=== PATIENT | male | born 1965 | race Caucasian/White ===

== ENCOUNTER 2016-11-21 10:00 | Day surgery (SDC) | payer OTHER ==
[~2016-11-21] VITALS: Ht 180.3 cm; Wt 79.5 kg
[~2016-11-21 10:00] MED LIST: DOXY100T PO
[2016-11-21 10:19] VITALS: BP 125/73; PULSE 68; RESP 20; TEMP 97.6; O2SAT 97
[2016-11-21] MEDS ORDERED: SODIUM CHLOR 0.9% 1000 ML IV SCH (11:00)
[2016-11-21 11:29] LABS: AUTOMATED NEUTROPHIL # 2.6 TH/MM3 (1.8-7.7); BASOPHIL % 0.6 % (0.0-2.0); EOSINOPHIL # 0.1 TH/MM3 (0-0.4); EOSINOPHIL % 1.7 % (0.0-4.0); HEMATOCRIT 43.3 % (39.0-51.0); HEMO FLAGS DIFF FINAL; LYMPH % 31.6 % (9.0-44.0); LYMPHOCYTE # 1.6 TH/MM3 (1.0-4.8); MEAN CELL VOLUME 90.6 FL (80.0-100.0); MEAN CORPUSCULAR HEMOGLOBIN 30.2 PG (27.0-34.0); MEAN CORPUSCULAR HGB CONC 33.3 % (32.0-36.0); MONO % 13.5 % (0.0-8.0); NEUT % 52.6 % (16.0-70.0); PLATELET COUNT 218 TH/MM3 (150-450); RED BLOOD COUNT 4.78 MIL/MM3 (4.50-5.90); RED CELL DISTRIBUTION WIDTH 14.2 % (11.6-17.2)
[2016-11-21 11:40] LABS: PROTHROMBIN TIME - PATIENT 10.7 SEC (9.8-11.6)
[2016-11-21 11:47] LABS: APTT (PATIENT) 26.7 SEC (24.3-30.1)
[2016-11-21] MEDS ORDERED: LIDOCAINE HCL 1% 20 ML VIAL ONE (12:01)
[2016-11-21] MEDS ORDERED: MIDAZOLAM HCL 5 MG/5 ML VIAL ONE (12:26)
[2016-11-21] MEDS ORDERED: fentaNYL CITRATE 250 MCG/5 ML AMP ONE (12:26)
--- NOTE | 2016-11-21 13:14 | PD.RAD ---
Post Procedure Progress Note Pre Procedure Diagnosis: (1) History of total left hip arthroplasty (2) Left hip pain Post Procedure Diagnosis: (1) History of total left hip arthroplasty (2) Left hip pain Procedure Date: Nov 21, 2016 Supervising Radiologist: Joe Huerta Anesthesia: Local, Conscious Sedation Plan of Activity Patient to Unit: [facility] Patient Condition: Good Additional Comments: 15cc of synovial fluid aspirated from the left hip. Samples sent for gram stain, culture, cell count and crystals See PACS Report for procedural detail/treatment Joe Huerta MD Nov 21, 2016 13:14
[2016-11-21 13:30] VITALS: BP 115/73; PULSE 63; RESP 20; TEMP 97.9; O2SAT 97
[2016-11-21 14:00] VITALS: BP 118/73; PULSE 55; RESP 20; O2SAT 97
[2016-11-21] MEDS ORDERED: oxyCODONE/ACETAMINOPHEN 5 MG/325 MG TAB PO ONE (14:00)
[2016-11-21 14:30] VITALS: BP 114/76; PULSE 64; RESP 20; O2SAT 97
[2016-11-21 15:15] VITALS: BP 120/80; PULSE 64; RESP 20; O2SAT 97
--- NOTE | 2016-11-21 15:16 | RADRPT ---
EXAM DATE/TIME: 11/21/2016 12:37 [facility] COMPARISON: No previous studies available for comparison. INDICATIONS : Left hip effusion. SEDATION TIME: 30 minutes MEDICATION(S): 1.) 3 mg midazolam (Versed) IV 2.) 150 mcg fentanyl (Sublimaze) IV DEVICE(S): 1.) 18 gauge Hernandez blunt needle 5cm 2.) 18 gauge Hernandez blunt needle 10cm Total volume of 12 cc of clear, yellow fluid was removed. MEDICAL HISTORY : None. SURGICAL HISTORY : Bilateral hip. ENCOUNTER: Initial ACUITY: 1 day PAIN SCORE: 5/10 LOCATION: Left hip PROCEDURE: PROCEDURE : CT guided left hip aspiration.. The risks, benefits and alternatives to the procedure were explained and verbal and written consent w as obtained. Using automated exposure control and adjustment of the mA and/or kV according to patien t size, radiation dose was kept as low as reasonably achievable to obtain optimal diagnostic quality images. The site was prepped in sterile fashion. Full sterile technique was used, including cap, ma sk, sterile gloves and gown and a large sterile sheet. Hand hygiene and 2% chlorhexidine and/or beta dine/alcohol prep was utilized per protocol for cutaneous antisepsis. The skin and subcutaneous tiss ues were infiltrated with local anesthetic solution. A Hernandez blunt needle was advanced through the skin of the left groin and down into the hip. Approxi mately 20 cc of straw-colored, thick fluid was removed. Samples were sent for Gram stain, culture, se nsitivity, cell count and crystals. CONCLUSION: Uncomplicated aspiration of the patient's left hip arthroplasty. Joe Huerta MD on November 21, 2016 at 15:14 Board Certified Radiologist. This report was verified electronically.
[2016-11-21 16:48] LABS: WBC, SYNOVIAL FLUID 80 /MM3 (0-200)
== END 2016-11-21 15:15 | disposition home or self-care (01) ==
LOC: HRAD 10:00 → HRIP 10:06 → HRAD 15:15
PROVIDERS: ATTEND Orthopaedic Surgery
DX: M25.452 Effusion, left hip (principal); Z96.642 Presence of left artificial hip joint; Z88.5 Allergy status to narcotic agent; Z91.040 Latex allergy status
CPT/HCPCS: 20610; 77012; 85025; 85610; 85730; 87070; 87205; 89051; 89060; 99152; 99153; J2250; J3010